=== PATIENT | female | born 1980 | race Caucasian/White ===

== ENCOUNTER 2019-03-15 07:35 | Day surgery (SDC) | payer BC ==
[~2019-03-15] VITALS: Ht 160 cm; Wt 60.6 kg
[~2019-03-15 07:35] MED LIST: ADVIL
[2019-03-15 07:56] VITALS: Ht 160 cm; Wt 60.6 kg
[2019-03-15 08:26] VITALS: BP 118/72; PULSE 82; RESP 16
[2019-03-15] MEDS ORDERED: MIDAZOLAM 1 MG/ML 2 ML INJ ONE ×2 (08:58→08:59)
[2019-03-15] MEDS ORDERED: FENTAnyl 50 MCG/ML VIAL ONE (08:58)
[2019-03-15 09:20] VITALS: BP 115/75; RESP 20
== END 2019-03-15 10:43 | disposition home or self-care (01) ==
LOC: GIL 07:35
PROVIDERS: ATTEND Internal Medicine Gastroenterology
DX: K64.4 Residual hemorrhoidal skin tags (principal)
CPT/HCPCS: 45378; 84703; J2250; J3010; Z7610